=== PATIENT | female | born 1970 | race Caucasian/White ===

== ENCOUNTER 2022-01-31 00:56 | Emergency (ER) | payer BC ==
[~2022-01-31] VITALS: Ht 160 cm; Wt 57.0 kg
[2022-01-31] MEDS ORDERED: AMOXICILLIN/POTASSIUM CLAVULANATE 875/125MG TAB PO ONE (02:30)
[2022-01-31 03:18] LABS: CLARITY URINE CLEAR (CLEAR); COLOR URINE YELLOW (YELLOW); KETONES URINE NEGATIVE (NEGATIVE); LEUKOCYTE ESTERASE URINE 1+ (NEGATIVE); NITRITE URINE NEGATIVE (NEGATIVE); OCCULT BLOOD URINE NEGATIVE (NEGATIVE); PROTEIN URINE NEGATIVE (NEGATIVE); SPECIFIC GRAVITY URINE 1.027 (1.005-1.030)
[2022-01-31] MEDS ORDERED: GLYC30DR OP (04:03)
[2022-01-31] MEDS ORDERED: AMOX1TAB16 MT (04:03)
[2022-01-31] MEDS ORDERED: NITR-87 MT (04:03)
[2022-01-31] MEDS ORDERED: SODI88SP18 BOTHNSTRLS (04:04)
[2022-01-31] MEDS ORDERED: PSEU-207 MT (04:04)
[2022-01-31 04:29] VITALS: BP 110/74
== END 2022-01-31 04:31 | disposition home or self-care (01) ==
LOC: ER 00:56
DX: N39.0 Urinary tract infection, site not specified (principal); J32.9 Chronic sinusitis, unspecified; Z79.899 Other long term (current) drug therapy
CPT/HCPCS: 81003; 81025; 82962; 99283